=== PATIENT | female | born 1945 | race Hispanic/Latino ===

== ENCOUNTER 2018-08-11 08:28 | Day surgery (SDC) | payer MEDICARE, BC ==
[2018-08-06 08:30] VITALS: BMI 38.3
[2018-08-11] MEDS ORDERED: Sodium Chloride 0.9% 1,000 ML IV SCH (10:00)
[2018-08-11] MEDS ORDERED: Propofol 10 mg/ml Inj (20 ML) ONE (10:04)
[2018-08-11] MEDS ORDERED: ePHEDrine 50 mg/ml Inj ONE (10:09)
[2018-08-11] MEDS ORDERED: Midazolam 2 MG/2 ML VIAL ONE (10:09)
[2018-08-11 13:24] VITALS: BP 168/71; PULSE 60; RESP 19; TEMP 98; O2SAT 100
== END 2018-08-11 11:53 | disposition home or self-care (01) ==
LOC: ENDO 08:28
PROVIDERS: ATTEND Internal Medicine Gastroenterology
DX: K21.9 Gastro-esophageal reflux disease without esophagitis (principal); K29.50 Unspecified chronic gastritis without bleeding; K44.9 Diaphragmatic hernia without obstruction or gangrene; R13.10 Dysphagia, unspecified; R63.4 Abnormal weight loss
CPT/HCPCS: 43239; 88305; 88312; 88342; J0360; J2250; J2704; J3010; J7030; J7040